=== PATIENT | female | born 1990 ===

== ENCOUNTER 2020-04-23 08:26 | Emergency (ER) | payer OTHER ==
[~2020-04-23] VITALS: Ht 144.7 cm; Wt 43.5 kg
[2020-04-23] MEDS ORDERED: IBU800 MG PO (09:43)
[2020-04-24] MEDS ORDERED: IBUPROFEN600 MG PO (15:55)
== END 2020-04-23 09:50 | disposition home or self-care (01) ==
LOC: ED 08:26
DX: S16.1XXA Strain of muscle, fascia and tendon at neck level, initial encounter (principal); S00.93XA Contusion of unspecified part of head, initial encounter; W19.XXXA Unspecified fall, initial encounter; Y93.89 Activity, other specified; Y92.89 Other specified places as the place of occurrence of the external cause; Y99.8 Other external cause status

== ENCOUNTER 2020-04-24 12:47 | Emergency (ER) | payer OTHER ==
[~2020-04-24] VITALS: Ht 144.7 cm; Wt 41.7 kg
[~2020-04-24 12:47] MED LIST: IBU800 MG PO
[2020-04-24] MEDS ORDERED: IBUPROFEN600 MG PO (15:55)
== END 2020-04-24 16:39 | disposition home or self-care (01) ==
LOC: ED 12:47
DX: S09.90XA Unspecified injury of head, initial encounter (principal); S16.1XXA Strain of muscle, fascia and tendon at neck level, initial encounter; Z79.899 Other long term (current) drug therapy; X58.XXXA Exposure to other specified factors, initial encounter; Y93.89 Activity, other specified; Y92.89 Other specified places as the place of occurrence of the external cause; Y99.8 Other external cause status

== ENCOUNTER 2020-05-30 09:21 | Emergency (ER) | payer OTHER ==
[~2020-05-30] VITALS: Ht 144.7 cm; Wt 42.6 kg
[~2020-05-30 09:21] MED LIST changes: +IBUPROFEN600 MG PO
== END 2020-05-30 12:28 | disposition home or self-care (01) ==
LOC: ED 09:21
DX: S46.911A Strain of unspecified muscle, fascia and tendon at shoulder and upper arm level, right arm, initial encounter (principal); F17.200 Nicotine dependence, unspecified, uncomplicated; V80.010A Animal-rider injured by fall from or being thrown from horse in noncollision accident, initial encounter; Y93.89 Activity, other specified; Y92.89 Other specified places as the place of occurrence of the external cause; Y99.8 Other external cause status

== ENCOUNTER → 2020-06-16 | Outpatient (CLI) | payer OTHER | END | disposition home or self-care (01) | LOC: MRI 07:58 | DX: S43.401D Unspecified sprain of right shoulder joint, subsequent encounter (principal); X58.XXXD Exposure to other specified factors, subsequent encounter ==

== ENCOUNTER 2020-10-07 15:13 | Emergency (ER) | payer OTHER ==
[~2020-10-07] VITALS: Ht 149.8 cm; Wt 40.8 kg
[2020-10-07 15:57] LABS: BILIRUBIN Negative (Negative); BLOOD 3+ (Negative); CLARITY Clear (Clear); COLOR Yellow (Yellow); GLUCOSE Negative (Negative); KETONE Negative (Negative); LEUKO ESTERASE Negative (Negative); NITRITE Negative (Negative)
[2020-10-07 16:13] LABS: BACTERIA 1+; MUCOUS 1+; RBC 21-30 rbc/hpf (0-2)
== END 2020-10-07 16:54 | disposition home or self-care (01) ==
LOC: ED 15:13
PROVIDERS: Emergency Medicine
DX: R25.2 Cramp and spasm (principal)